=== PATIENT | male | born 1975 | race Caucasian/White ===

== ENCOUNTER → 2016-03-29 | Day surgery (SDC) | payer MEDICAID ==
[~2016-03-29] MED LIST: ASPIRIN 81MG TA81 MG PO; BRILINTA90 M1 PO; CARVEDILOL3.125 M1 PO; CLINDAMYCIN HC300 MG PO; KEFLEX 500MG.500 MG PO; LISINOPRIL2.5 M1 PO; LOSARTAN POTASS25 MG PO; METOPROLOL 25 M25 MG PO; NOMEDS XX; NORCO 325 MG-51 TAB PO; PERCOCET 5/3251 EACH PO; PRAVACHOL 20MG.20 MG PO; PROTONIX 40MG T40 MG PO
[2016-03-29 12:37] VITALS: BP 138/96
[2016-03-29 13:02] LABS: LYMPH % 14.3 % (10-50)
[2016-03-29 13:04] LABS: HEMOGLOBIN 20.6 g/dL (14.1-18.0)
[2016-03-29 13:10] LABS: BUN 15 mg/dL (7-18); GFR (ESTIMATED) 75 ML/MIN (>60)
== END ==
LOC: SDC 12:10
PROVIDERS: Urology
DX: Z53.9 Procedure and treatment not carried out, unspecified reason (principal)

== ENCOUNTER → 2016-09-17 | Outpatient (CLI) | payer MEDICAID ==
--- NOTE | 2016-09-18 16:30 | RADIOLOGY REPORT PS360 ---
PROCEDURE: 2-D M-mode and color Doppler study INDICATIONS FOR THE TEST: Chest pain COPD Heart Murmur Tobacco Smoking Palpitations Fatigue+ Syncope Edema Hypertension Diabetes Mellitus Rheumatic Fever SOB PERRY Obesity Hyperlipidemia Family History HD Additional History AICD 2 MONTHS AGO, ME AND STENT 2015 PATIENT INFORMATION HEIGHT: 68 WEIGHT:145 GENDER: Male B/P:145/90 2-D/M-MODE INTERPRETATION: 2-D MEASUREMENTS OBSERVED VALUES IN CMS Right Ventricular Dimension (RVDd) 1.9 Interventricular Septum (Thickness)(IVsd) 1.1 Left Ventricular Internal Dimensions(LVIDd) 5.9 Left Ventricular Posterior Wall (Thickness)(LVPWd) 0.9 Aortic Root 3.4 Aortic Cusp Separation 2.3 Left Atrial Dimensions (LAD) 3.9 2D 1. The left atrium is mildly enlarged, left ventricle is mildly dilated, there is no concentric left ventricular hypertrophy, there is severely reduced left ventricular systolic function, visually estimated ejection fraction 25-30%, there is marked hypo to akinesis involving the mid to distal septum, anterior ,anteroapical ,apex and inferoapical wall. 2. The right atrium and right ventricle are normal size and contractility. There is a catheter noted in the right ventricle which is likely an AICD lead. 3. The aortic, mitral and tricuspid valve are structurally normal. 4. The pulmonic valve is not well visualized. 5. No significant pericardial effusion noted. DOPPLER INTERROGATION: Doppler interrogation of the aortic mitral and tricuspid valvular presence of mild mitral and tricuspid regurgitation, diastolic parameters are inconclusive. Tricuspid regurgitant jet velocity insufficient for calculation of the right ventricular systolic pressure. CONCLUSION: 1. Mildly enlarged left atrium, mildly dilated left ventricle, visually estimated ejection fraction 25-30% with multiple segmental wall motion abnormality described above. 2. Mild mitral and tricuspid regurgitation. 3. No significant pericardial effusion noted.
== END ==
LOC: RT 13:14
DX: I42.9 Cardiomyopathy, unspecified (principal); R53.83 Other fatigue; Z95.810 Presence of automatic (implantable) cardiac defibrillator

== ENCOUNTER → 2016-10-05 | Outpatient (CLI) | payer MEDICAID ==
--- NOTE | 2016-10-05 16:18 | RADIOLOGY REPORT PS360 ---
CHEST(2 VIEWS-NOT PORTABLE) Ordering physician: Esequiel Batres MD Age: 41 years Male INDICATION: CAD,COPD, SYS CHF polycythemia smoker hyperlipidemia PROCEDURE: CHEST(2 VIEWS-NOT PORTABLE) polycythemia FINDINGS: Prior chest film 07/13/2016 better inspiration today and lungs appear better expanded overall. The pacer device overlying the left chest again noted with atrial and ventricular leads appearing similar and intact. COMPARISON is also made to PA and lateral chest from 2006 shows no significant new pulmonary findings otherwise. There is a old fracture of the right ninth rib which is been present since July 2015. Lungs well expanded and clear with nothing definitely acute. Heart normal size. Normal pulmonary vascularity. Hilar and mediastinal structures appear satisfactory. Chest wall unremarkable. T-spine intact. IMPRESSION ----- No active disease Nothing definite acute at chest . Pacemaker.
== END ==
LOC: RAD 11:08
DX: I25.10 Atherosclerotic heart disease of native coronary artery without angina pectoris (principal); I11.9 Hypertensive heart disease without heart failure; J44.9 Chronic obstructive pulmonary disease, unspecified; E78.5 Hyperlipidemia, unspecified; I50.20 Unspecified systolic (congestive) heart failure; D45 Polycythemia vera

== ENCOUNTER → 2016-11-07 | Outpatient (CLI) | payer MEDICAID ==
--- NOTE | 2016-11-07 10:26 | RADIOLOGY REPORT PS360 ---
LOWER LEG-RT HISTORY: Follow-up fracture/ORIF HEALING OF SHAFT OF RT TIBIA ORDERING PHYSICIAN: JORGE MEDEROS MD PATIENT AGE: 41 years COMPARISON: [id number] FINDINGS: Intramedullary ride unchanged within the tibia. Healing fractures of the proximal shaft of the fibula and junction of the mid and distal one third of the tibia once again noted. There is some increased callus formation. Fracture lines are still visible. There is good alignment and no significant displacement. IMPRESSION: Healing right tib-fib fractures status post ORIF as described above
== END ==
LOC: RAD 09:17
DX: S82.201D Unspecified fracture of shaft of right tibia, subsequent encounter for closed fracture with routine healing (principal)

== ENCOUNTER → 2016-12-11 | Outpatient (CLI) | payer MEDICAID | LOC: SL 20:15 | DX: G47.33 Obstructive sleep apnea (adult) (pediatric) (principal) ==